=== PATIENT | male | born 1995 | race Caucasian/White ===

== ENCOUNTER 2020-07-21 16:47 | Emergency (ER) | payer OTHER ==
[~2020-07-21] VITALS: Ht 185.4 cm; Wt 90.7 kg
[2020-07-21] MEDS ORDERED: LORazepam 0.5 MG TAB PO ONE (17:45)
[2020-07-21 18:08] LABS: Urine Bacteria NONE SEEN /hpf (None Seen); Urine Blood Negative /uL (Negative); Urine WBC 3 /hpf (0 - 3)
[2020-07-21 18:29] LABS: Amphetamine Screen, Urine NEGATIVE (NEGATIVE); Barbiturate Scree,Urine NEGATIVE (NEGATIVE); Benzodiazephine Screen, Urine NEGATIVE (NEGATIVE); Cannabinoid Screen, Urine NEGATIVE (NEGATIVE); Cocaine Screen, Urine NEGATIVE (NEGATIVE); Opiate Scree,Urine NEGATIVE (NEGATIVE); Phencyclidine Screen, Urine NEGATIVE (NEGATIVE)
[2020-07-21 19:17] LABS: Basophils # (auto) 0 10 ^3/uL (0-0.2); Basophils % (auto) 0.5 % (0.0-2.0); Eosinophils # (auto) 0 10 ^3/uL (0-0.8); Eosinophils % (auto) 0.2 % (0.0-7.0); Hematocrit 46.2 % (41.0-53.0); Hemoglobin 16.2 g/dL (13.5-17.5); Lymphocytes # (auto) 1.2 10 ^3/uL (0.4-5.4); Lymphocytes % (auto) 16.6 % (10.0-50.0); Mean Corpuscular Hemoglobin 33.9 pg (28.0-32.0); Mean Corpuscular Hgb Conc. 35.1 g/dL (32.0-36.0); Mean Corpuscular Volume 96.6 fL (80.0-100.0); Monocytes # (auto) 0.5 10 ^3/uL (0-1.3); Monocytes % (auto) 7.1 % (0.0-12.0); Neutrophils # (auto) 5.3 10 ^3/uL (1.6-8.6); Neutrophils % (auto) 75.6 % (37.0-80.0); Platelet Count (auto) 158 10^3/uL (140-450); Red Blood Cells 4.79 10^6/uL (4.5-5.90); Red Cell Distribution Width 12.6 % (11.8-14.3)
[2020-07-21 19:32] LABS: Calcium 9.2 mg/dL (8.5-10.1); Potassium 3.4 mmol/L (3.5-5.1); Salicylate < 1.7 mg/dL (2.8-20.0)
[2020-07-21 19:37] LABS: Acetaminophen < 2.0 ug/mL (10-30)
[2020-07-21 19:38] LABS: Albumin 3.9 g/dL (3.4-5.0)
[2020-07-22] MEDS ORDERED: diphenhdrAMINE HCL 50 MG/1 ML VL IM PRN (06:45)
[2020-07-22] MEDS ORDERED: HALOPERIDOL LACTATE 5 MG/ML INJ VIAL IM PRN (06:45)
[2020-07-22] MEDS ORDERED: LORazepam 2MG/ML-1ML VIAL IM PRN (06:45)
[2020-07-22] MEDS ORDERED: diphenhdrAMINE HCL 25 MG CAP PO PRN (21:00)
[2020-07-22] MEDS ORDERED: LORazepam 0.5 MG TAB PO PRN (21:00)
[2020-07-23] MEDS ORDERED: diphenhdrAMINE HCL 25 MG CAP PO ONE (23:53)
[2020-07-24] MEDS ORDERED: cefTRIAXone SOD 1,000 MG VL IM ONE (10:45)
[2020-07-24 14:22] VITALS: BP 140/73
== END 2020-07-24 15:26 | disposition home or self-care (01) ==
LOC: ER 16:47
DX: F23 Brief psychotic disorder (principal); Z20.822 Contact with and (suspected) exposure to COVID-19
CPT/HCPCS: 36415; 80053; 80307; 80320; 80329; 81001; 85025; 87426; 99285; J0696; J2060